=== PATIENT | male | born 1970 | race Caucasian/White ===

== ENCOUNTER 2017-08-14 16:41 | Emergency (ER) | payer OTHER ==
[~2017-08-14] VITALS: Ht 170.1 cm; Wt 108.9 kg
[2017-08-14] MEDS ORDERED: OMNICEF300 MG PO (17:28)
== END 2017-08-14 17:34 | disposition home or self-care (01) ==
LOC: ED 16:41
DX: J32.9 Chronic sinusitis, unspecified (principal); H66.90 Otitis media, unspecified, unspecified ear

== ENCOUNTER → 2017-08-26 | Emergency (ER) | payer OTHER ==
[~2017-08-26] VITALS: Ht 170.1 cm; Wt 108.9 kg
[~2017-08-26] MED LIST: CHLORZOXAZONE500 M2 PO; NAPROSYN500 MG PO; OMNICEF300 MG PO
== END ==
LOC: ED 18:47
DX: S13.9XXA Sprain of joints and ligaments of unspecified parts of neck, initial encounter (principal); S20.219A Contusion of unspecified front wall of thorax, initial encounter; R03.0 Elevated blood-pressure reading, without diagnosis of hypertension; V49.88XA Car occupant (driver) (passenger) injured in other specified transport accidents, initial encounter; Y93.89 Activity, other specified; Y92.413 State road as the place of occurrence of the external cause; Y99.9 Unspecified external cause status

== ENCOUNTER 2018-12-23 15:34 | Emergency (ER) | payer SELFPAY ==
[~2018-12-23] VITALS: Ht 170.1 cm; Wt 113.4 kg
[2018-12-23] MEDS ORDERED: PREDNISONE10 MG PO (16:13)
[2018-12-23] MEDS ORDERED: TAGAMET HB200 M1 PO (16:13)
[2018-12-23] MEDS ORDERED: BENADRYL ALLERG25 M5 PO (16:13)
== END 2018-12-23 16:39 ==
LOC: ED 15:34
DX: L23.7 Allergic contact dermatitis due to plants, except food (principal); Z79.899 Other long term (current) drug therapy; Z79.2 Long term (current) use of antibiotics

== ENCOUNTER 2019-11-20 22:19 | Emergency (ER) | payer OTHER ==
[~2019-11-20] VITALS: Ht 170.1 cm; Wt 117.9 kg
[~2019-11-20 22:19] MED LIST changes: +BENADRYL ALLERG25 M5 PO; +PREDNISONE10 MG PO; +TAGAMET HB200 M1 PO
[2019-11-20 22:59] LABS: BASO % 0.3 % (0.0-1.0); EOS % 0.3 % (1.0-4.0); HEMATOCRIT 43.5 % (42.0-52.0); LYMPH # 2.4 10*3/uL (1.3-4.4); LYMPH % 17.1 % (27.0-41.0); MEAN CELL VOLUME 86.1 fl (80.0-94.0); MEAN CORPUSCULAR HGB 29.9 pg (27.0-31.0); MEAN CORPUSCULAR HGB CONC 34.7 g/dl (33.0-37.0); MEAN PLATELET VOLUME 10.5 fl (9.6-12.3); MONO # 1.4 10*3/uL (0.1-1.0); MONO % 9.7 % (3.0-9.0); NEUT # 10.1 10*3/uL (2.3-7.9); NEUT % 72.2 % (47.0-73.0); PLATELET COUNT AUTOMATED 238 10*3/uL (130-400); RED BLOOD COUNT 5.05 10*6/uL (4.50-5.90)
[2019-11-20 23:16] LABS: ALBUMIN 3.5 gm/dl (3.1-4.5); ALKALINE PHOSPHATASE 164 U/L (45-117); BUN 14 mg/dl (7-24); CHLORIDE 97 mmol/L (98-107); CREATININE 1.21 mg/dL (0.70-1.30); POTASSIUM 3.8 mmol/L (3.5-5.1); SGOT/AST 32 IU/L (3-35); SGPT/ALT 53 U/L (12-78); SODIUM 131 mmol/L (136-145); TOTAL PROTEIN 7.9 gm/dL (6.4-8.2)
[2019-11-20 23:50] LABS: BILIRUBIN NEGATIVE (NEGATIVE); BLOOD 2+ (NEGATIVE); CLARITY CLEAR (CLEAR); COLOR YELLOW (YELLOW); GLUCOSE 3+ (NEGATIVE); KETONE 3+ (NEGATIVE); LEUKO ESTERASE NEGATIVE (NEGATIVE); NITRITE NEGATIVE (NEGATIVE); SPECIFIC GRAVITY 1.015 (1.005-1.030); UROBILINOGEN 0.2 E.U./dl (0.2-1.0)
[2019-11-20 23:51] LABS: EPITHELIAL CELLS 16-20; RBC 21-30 rbc/hpf (0-2); WBC 0-2 wbc/hpf (0-5)
[2019-11-21] MEDS ORDERED: METFORMIN XR500 MG PO (01:44)
== END 2019-11-21 02:31 | disposition home or self-care (01) ==
LOC: ED 22:19
PROVIDERS: Nurse Practitioner Family
DX: R73.9 Hyperglycemia, unspecified (principal); Z79.899 Other long term (current) drug therapy

== ENCOUNTER → 2019-11-27 | Outpatient (CLI) | payer OTHER ==
[~2019-11-27] MED LIST changes: +METFORMIN XR500 MG PO
== END | disposition home or self-care (01) ==
LOC: RESCLI 00:27
DX: E11.65 Type 2 diabetes mellitus with hyperglycemia (principal); Z68.41 Body mass index [BMI] 40.0-44.9, adult; Z79.84 Long term (current) use of oral hypoglycemic drugs; Z79.899 Other long term (current) drug therapy

== ENCOUNTER → 2020-01-15 | Outpatient (CLI) | payer OTHER ==
[2020-01-15 12:06] LABS: BASO % 0.2 % (0.0-1.0); EOS # 0.3 10*3/uL (0.0-0.4); EOS % 2.8 % (1.0-4.0); HEMATOCRIT 46.6 % (42.0-52.0); LYMPH # 2.7 10*3/uL (1.3-4.4); LYMPH % 28.2 % (27.0-41.0); MEAN CELL VOLUME 88.3 fl (80.0-94.0); MEAN CORPUSCULAR HGB 29.5 pg (27.0-31.0); MEAN CORPUSCULAR HGB CONC 33.5 g/dl (33.0-37.0); MEAN PLATELET VOLUME 10.4 fl (9.6-12.3); MONO # 0.7 10*3/uL (0.1-1.0); MONO % 7.6 % (3.0-9.0); NEUT # 5.7 10*3/uL (2.3-7.9); NEUT % 60.8 % (47.0-73.0); PLATELET COUNT AUTOMATED 270 10*3/uL (130-400); RED BLOOD COUNT 5.28 10*6/uL (4.50-5.90); WHITE BLOOD COUNT 9.4 10*3/uL (4.8-10.8)
[2020-01-15 12:37] LABS: ALBUMIN 4.1 gm/dl (3.1-4.5); ALKALINE PHOSPHATASE 118 U/L (45-117); BUN 9 mg/dl (7-24); CHLORIDE 104 mmol/L (98-107); CREATININE 0.86 mg/dL (0.70-1.30); HDL CHOLESTEROL 41 mg/dl (40-60); POTASSIUM 3.9 mmol/L (3.5-5.1); SGOT/AST 49 IU/L (3-35); SGPT/ALT 108 U/L (12-78); SODIUM 136 mmol/L (136-145); TOTAL PROTEIN 7.7 gm/dL (6.4-8.2); TRIGLYCERIDES 118 mg/dl (<150); VLDL CHOLESTEROL 24 mg/dL (6-40)
[2020-01-15 12:45] LABS: CHOLESTEROL 180 mg/dL (<200); LDL CHOLESTEROL 115 mg/dL (9-159)
[2020-01-15 13:33] LABS: VITAMIN D, 25-HYDROXY 35.1 ng/mL (30-100)
== END | disposition home or self-care (01) ==
LOC: RESCLI 05:46 → LAB 05:46 → RESCLI 10:16
PROVIDERS: Internal Medicine
DX: E11.65 Type 2 diabetes mellitus with hyperglycemia (principal); E78.5 Hyperlipidemia, unspecified; R74.0 Nonspecific elevation of levels of transaminase and lactic acid dehydrogenase [LDH]; K76.0 Fatty (change of) liver, not elsewhere classified; Z71.3 Dietary counseling and surveillance; Z79.84 Long term (current) use of oral hypoglycemic drugs

== ENCOUNTER → 2020-01-24 | Outpatient (CLI) | payer OTHER | END | disposition home or self-care (01) | LOC: US 01-23 11:00 | DX: R74.0 Nonspecific elevation of levels of transaminase and lactic acid dehydrogenase [LDH] (principal) ==

== ENCOUNTER → 2020-03-26 | Outpatient (CLI) | payer OTHER ==
[2020-03-27 08:08] LABS: HEP B CORE AB, IGM Negative (Negative); HEPATITIS B SURFACE AG Negative (Negative); HEPATITIS C VIRUS ANTIBODY <0.1 s/co (0.0-0.9)
[2020-03-27 10:12] LABS: CREATININE,URINE 222.3 mg/dL (Not Estab.)
== END | disposition home or self-care (01) ==
LOC: LAB 01:23 → RESCLI 01:23
PROVIDERS: Internal Medicine; ATTEND Internal Medicine
DX: E11.65 Type 2 diabetes mellitus with hyperglycemia (principal); E78.5 Hyperlipidemia, unspecified; K76.0 Fatty (change of) liver, not elsewhere classified; Z23 Encounter for immunization; Z71.3 Dietary counseling and surveillance; Z79.899 Other long term (current) drug therapy

== ENCOUNTER → 2020-04-24 | Outpatient (CLI) | payer OTHER | END | disposition home or self-care (01) | LOC: COVID19 00:24 | PROVIDERS: ATTEND Internal Medicine | DX: Z20.828 Contact with and (suspected) exposure to other viral communicable diseases (principal) ==

== ENCOUNTER → 2020-07-09 | Outpatient (CLI) | payer OTHER | END | disposition home or self-care (01) | LOC: RESCLI 01:26 | PROVIDERS: ATTEND Internal Medicine Nephrology | DX: E11.65 Type 2 diabetes mellitus with hyperglycemia (principal); E78.5 Hyperlipidemia, unspecified; Z79.84 Long term (current) use of oral hypoglycemic drugs; Z79.899 Other long term (current) drug therapy ==

== ENCOUNTER → 2020-08-27 | Outpatient (CLI) | payer OTHER | END | disposition home or self-care (01) | LOC: LAB 12:18 | PROVIDERS: ATTEND Internal Medicine Nephrology | DX: E11.65 Type 2 diabetes mellitus with hyperglycemia (principal) ==

== ENCOUNTER 2020-12-24 19:35 | Emergency (ER) | payer OTHER ==
[2020-12-24] MEDS ORDERED: NAPROSYN500 MG PO (20:44)
== END 2020-12-24 21:05 | disposition home or self-care (01) ==
LOC: ED 19:35
DX: S93.602A Unspecified sprain of left foot, initial encounter (principal); Z79.899 Other long term (current) drug therapy; X58.XXXA Exposure to other specified factors, initial encounter; Y93.89 Activity, other specified; Y92.89 Other specified places as the place of occurrence of the external cause; Y99.8 Other external cause status

== ENCOUNTER 2021-04-26 01:18 | Emergency (ER) | payer OTHER ==
[~2021-04-26] VITALS: Ht 170.1 cm; Wt 106.1 kg
[2021-04-26 02:56] LABS: BASO % 0.3 % (0.0-1.0); EOS # 0.1 10*3/uL (0.0-0.4); EOS % 0.7 % (1.0-4.0); LYMPH # 2.5 10*3/uL (1.3-4.4); LYMPH % 35.3 % (27.0-41.0); MEAN CELL VOLUME 88.2 fl (80.0-94.0); MEAN CORPUSCULAR HGB 29.6 pg (27.0-31.0); MEAN CORPUSCULAR HGB CONC 33.6 g/dl (33.0-37.0); MEAN PLATELET VOLUME 10.8 fl (9.6-12.3); MONO # 0.8 10*3/uL (0.1-1.0); MONO % 12.1 % (3.0-9.0); NEUT # 3.6 10*3/uL (2.3-7.9); NEUT % 51.3 % (47.0-73.0); PLATELET COUNT AUTOMATED 237 10*3/uL (130-400); RED CELL DISTRI WIDTH 12.3 % (0-14.5)
[2021-04-26 03:15] LABS: ALBUMIN 3.5 gm/dl (3.1-4.5); ALKALINE PHOSPHATASE 140 U/L (45-117); BUN 18 mg/dl (7-24); CHLORIDE 99 mmol/L (98-107); CREATININE 1.01 mg/dL (0.70-1.30); POTASSIUM 4.2 mmol/L (3.5-5.1); SGOT/AST 75 IU/L (3-35); SGPT/ALT 122 U/L (12-78); SODIUM 133 mmol/L (136-145); TOTAL PROTEIN 7.2 gm/dL (6.4-8.2)
== END 2021-04-26 04:59 | disposition home or self-care (01) ==
LOC: ED 01:18
PROVIDERS: Emergency Medicine
DX: U07.1 COVID-19 (principal)

== ENCOUNTER → 2021-10-28 | Outpatient (CLI) | payer OTHER | END | disposition home or self-care (01) | LOC: COVID19 12:15 | PROVIDERS: ATTEND Internal Medicine | DX: Z11.52 Encounter for screening for COVID-19 (principal); Z20.822 Contact with and (suspected) exposure to COVID-19 ==

== ENCOUNTER → 2021-11-30 | Outpatient (CLI) | payer OTHER ==
[2021-11-30 18:54] LABS: BUN 27 mg/dl (7-24); CHLORIDE 102 mmol/L (98-107); CREATININE 1.31 mg/dL (0.70-1.30); IRON 96 ug/dL (65-175); POTASSIUM 3.5 mmol/L (3.5-5.1); SODIUM 137 mmol/L (136-145); TOTAL IRON BINDING CAPACITY 380 ug/dl (250-450)
[2021-12-02 08:08] LABS: ALPHA-1-ANTITRYPSIN, SERUM 92 mg/dL (101-187)
[2021-12-02 11:07] LABS: HEPATITIS B SURFACE AG Negative (Negative)
== END | disposition home or self-care (01) ==
LOC: LAB 18:11
PROVIDERS: ATTEND Family Medicine
DX: R74.01 Elevation of levels of liver transaminase levels (principal)

== ENCOUNTER → 2022-04-16 | Outpatient (CLI) | payer OTHER | END | disposition home or self-care (01) | LOC: US 10:30 | PROVIDERS: ATTEND Family Medicine | DX: K76.0 Fatty (change of) liver, not elsewhere classified (principal); E88.01 Alpha-1-antitrypsin deficiency ==

== ENCOUNTER → 2022-09-30 | Outpatient (CLI) | payer OTHER ==
[~2022-09-30] MED LIST changes: +CETIRIZINE HYDR10 MG PO; +CIPRO500 MG PO; +COMBIVENT RESPIM4 GM INH
== END ==
LOC: RAD 17:58
PROVIDERS: ATTEND Family Medicine
DX: R05.2 Subacute cough (principal)

== ENCOUNTER 2022-10-02 15:21 | Emergency (ER) | payer OTHER ==
[~2022-10-02] VITALS: Ht 170.1 cm; Wt 111.1 kg
[~2022-10-02 15:21] MED LIST changes: -CETIRIZINE HYDR10 MG PO; -CIPRO500 MG PO; -COMBIVENT RESPIM4 GM INH
[2022-10-02] MEDS ORDERED: CETIRIZINE HYDR10 MG PO (15:48)
[2022-10-02] MEDS ORDERED: METFORMIN XR500 MG PO (15:49)
[2022-10-02] MEDS ORDERED: CIPRO500 MG PO ×2 (16:17→16:44)
[2022-10-02] MEDS ORDERED: COMBIVENT RESPIM4 GM INH (16:18)
== END 2022-10-02 16:53 | disposition home or self-care (01) ==
LOC: ED 15:21
DX: J32.9 Chronic sinusitis, unspecified (principal); J98.01 Acute bronchospasm; Z87.442 Personal history of urinary calculi; N39.0 Urinary tract infection, site not specified; Z98.890 Other specified postprocedural states; Z86.16 Personal history of COVID-19

== ENCOUNTER → 2023-02-03 | Outpatient (CLI) | payer OTHER ==
[~2023-02-03] MED LIST changes: +CETIRIZINE HYDR10 MG PO; +CIPRO500 MG PO; +COMBIVENT RESPIM4 GM INH
== END | disposition home or self-care (01) ==
LOC: US 08:00
PROVIDERS: ATTEND Family Medicine
DX: K76.0 Fatty (change of) liver, not elsewhere classified (principal); K74.60 Unspecified cirrhosis of liver